=== PATIENT | female | born 1945 | race Caucasian/White ===

== ENCOUNTER 2022-01-02 14:53 | Emergency (ER) | payer MEDICARE, OTHER ==
[2022-01-02 19:34] LABS: HEMOGLOBIN 14.6 gm/dl (12.3-15.3); RED BLOOD COUNT 4.68 M/UL (4.00-5.10); WHITE BLOOD COUNT 7.8 K/UL (4.5-11.0)
[2022-01-02 19:59] LABS: BUN/CREATININE RATIO 27 (0-10)
== END 2022-01-02 20:35 | disposition home or self-care (01) ==
LOC: ER1 14:53
PROVIDERS: Physician Assistant
DX: S00.93XA Contusion of unspecified part of head, initial encounter (principal); S70.01XA Contusion of right hip, initial encounter; S50.01XA Contusion of right elbow, initial encounter; S40.011A Contusion of right shoulder, initial encounter; F03.90 Unspecified dementia, unspecified severity, without behavioral disturbance, psychotic disturbance, mood disturbance, and anxiety; E11.9 Type 2 diabetes mellitus without complications; I10 Essential (primary) hypertension; E78.5 Hyperlipidemia, unspecified; W19.XXXA Unspecified fall, initial encounter; Y92.009 Unspecified place in unspecified non-institutional (private) residence as the place of occurrence of the external cause
CPT/HCPCS: 70450; 72125; 73030; 73080; 73110; 73502; 80053; 81001; 82550; 82553; 84484; 85025; 93005; 99284